=== PATIENT | female | born 1935 | race Caucasian/White ===

== ENCOUNTER 2017-01-18 12:49 | Inpatient (IN) ==
[2017-01-19] MEDS ORDERED: *HR* Acetaminophen w/Cod 300-30 mg 1 TAB TABLET PO PRN (20:25)
[2017-01-19] MEDS: hydrALAZINE 25 MG TABLET PO SCH (23:01)
[2017-01-20 05:36] LABS: INR 1.3; Prothrombin Time 14.2 Seconds (9.4-12.1)
[2017-01-20 05:37] LABS: Basophils % 0.2 %; Eosinophils # 0.1 K/mcL (0.0-0.6); Eosinophils % 1.4 %; Hematocrit 33.2 % (35.3-44.9); Hemoglobin 11.7 g/dL (11.5-15.4); Immature Granulocytes % 0.4 % (0-4); Lymphocytes # 0.4 K/mcL (0.6-4.6); Lymphocytes % 3.9 %; Mean Corpuscular HGB Conc 35.2 g/dL (31.6-35.5); Mean Corpuscular Hemoglobin 31.4 pg (28.0-33.3); Mean Platelet Volume 10.4 fL (9.4-12.4); Monocytes # 0.4 K/mcL (0.0-1.3); Monocytes % 3.9 %; Neutrophils # 8.2 K/mcL (1.6-8.9); Platelet Count 247 K/mcL (140-400); Red Blood Count 3.73 M/mcL (3.82-4.97); Red Cell Distribution Width 12.9 % (11.5-14.5); Segmented Neutrophils % 90.2 %
[2017-01-20 05:39] LABS: Activated Partial Thrombo Time 29.7 Seconds (26.0-36.0)
[2017-01-20 05:49] LABS: BUN/Creatinine Ratio 18 (6-26); Blood Urea Nitrogen 12 mg/dL (7-20); Calcium 8.5 mg/dL (8.6-10.8); Carbon Dioxide 19 mEq/L (19-29); Chloride 109 mEq/L (98-109); Glucose 116 mg/dL (70-99); Osmolality,Calculated 291 (280-300); Potassium 3.6 mEq/L (3.5-4.5); Sodium 140 mEq/L (136-145); eGFR For African Americans > 60 (> 60); eGFR For Non-African Americans > 60 (> 60)
[2017-01-20] MEDS: hydrALAZINE 25 MG TABLET PO SCH ×3 (08:43→23:00)
[2017-01-20] MEDS: Cholecalciferol (D-3) 1,000 UNIT TABLET PO SCH (08:43)
[2017-01-20] MEDS ORDERED: Lidocaine/EPI 1:100k 2% 20 ML VIAL INFILT ONE (10:37)
[2017-01-20] MEDS ORDERED: Lidocaine/EPI 1:100k 1% 30 ML VIAL ONE (10:53)
[2017-01-20] MEDS ORDERED: Lidocaine/EPI 1:100k 1% 30 ML VIAL INFILT ONE (11:00)
[2017-01-20] MEDS: *HR* Acetaminophen w/Cod 300-30 mg 1 TAB TABLET PO PRN ×2 (11:42→18:04)
--- NOTE | 2017-01-20 11:47 | Internal Med History&Physical ---
Date of Encounter: 01/20/17 Time of Encounter: 11:47 Internal Medicine - H&P: HPI Admitted From: Hospital to Hospital Transfer Plans for Post Hospital Care: Home History of present illness: Ms. Kebede is a 81 year old female Past Med Surg Social Fam HX - Past Medical History Medical history: atrial fibrillation, cancer, CVA, hyperlipidemia, hypertension , other Psychiatric history: no psych history - Past Surgical History Surgical History: breast surgery, knee replacement - Social History Smoking Status: Never smoker Alcohol use: none Drug use: none Internal Medicine - H&P: Meds Acetaminophen w/Cod 300-30 mg [Tylenol w/Codeine #3] 1 each PO Q6HR PRN [History] Acetaminophen w/Cod 300-30 mg [Tylenol w/Codeine #3] 2 each PO Q6HR PRN [History] Aspirin 81 mg PO DAILY 01/19/17 [History] Atorvastatin [Lipitor] 10 mg PO HS 01/19/17 [History] Cholecalciferol (D-3) [Vitamin D] 1,000 unit PO DAILY 01/19/17 [History] hydrALAZINE [HydrALAZINE] 25 mg PO Q8HR 01/19/17 [History] Allergies Penicillins Allergy (Verified 01/19/17 20:25) Swelling of Lip/Tongue/Throat All Systems PM: A 10-system review of systems was performed and is negative for pertinent findings except as documented above in the HPI. - Constitutional Vitals: Temp Pulse Resp BP Pulse Ox 99.3 F 90 18 148/89 93 01/20/17 07:44 01/20/17 07:44 01/20/17 07:44 01/20/17 07:44 01/20/17 07:44 - Head Head exam: Present: atraumatic, normal inspection, normocephalic - Neck Neck exam general surgery: Present: supple, trachea midline. Absent: lymphadenopathy - Respiratory Respiratory exam: Present: CTAB. Absent: accessory muscle use, rales, rhonchi, wheezes - Cardiovascular Cardiovascular exam: Present: RRR, +S1, +S2. Absent: diastolic murmur, gallop, rubs, systolic murmur - Skin Skin exam: Present: dry, intact Additional comments: Patient apparently had a monitor placed in the upper left sternal. There is a small opening that has been bleeding through at least 8 dressing changes. My partner colleague spoke with the surgeon involved in this recommend that a stitch. So suture was placed across the opening of this 1 cm incision and we will follow after the dressings a bit on there for a while. Internal Med - H&P Results - Labs CBC & Chem 7: 01/20/17 05:25 01/20/17 05:25 Labs: Short CBC 01/20/17 Range/Units 05:25 WBC 9.1 (4.3-11.1) K/mcL Hgb 11.7 (11.5-15.4) g/dL Hct 33.2 L (35.3-44.9) % Plt Count 247 (140-400) K/mcL Neutrophils # 8.2 (1.6-8.9) K/mcL BMP 01/20/17 05:25 Sodium 140 Potassium 3.6 Chloride 109 Carbon Dioxide 19 BUN 12 Creatinine 0.66 Glucose 116 H Calcium 8.5 L - VTE Documentation of Mechanical Device: Graduated compression elastic hosiery
[2017-01-21] MEDS: Cholecalciferol (D-3) 1,000 UNIT TABLET PO SCH (08:08)
[2017-01-21] MEDS: hydrALAZINE 25 MG TABLET PO SCH ×3 (08:08→23:31)
--- NOTE | 2017-01-21 09:11 | Internal Med Progress Note ---
Date of Encounter: 01/21/17 Time of Encounter: 09:09 - Assessment and plan (1) CVA (cerebral vascular accident) Current Visit: Yes Status: Acute Assessment and plan: PT and OT working on improving ADL. Still has some residual difficulty in mobility, transfers, balance, gait, and activity tolerance. Patient often fatigue. 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 - Time Spent With Patient less than 15 minutes - Subjective Interval history: Patient feels better today. Happy that her wound has stopped bleeding. No shortness of breath. No chest pain. Still has some mild fatigue. No chest pain. Strong odor of urine. We will check urinalysis today - Constitutional Vitals: Temp Pulse Resp BP Pulse Ox 100.2 F H 91 16 125/75 93 01/21/17 07:00 01/21/17 07:00 01/21/17 07:00 01/21/17 07:00 01/21/17 07:00 General appearance: Present: A&O X 3, pleasant, no acute distress - Respiratory Respiratory exam: Present: CTAB. Absent: accessory muscle use, rales, rhonchi, wheezes - Cardiovascular Cardiovascular exam: Present: RRR, +S1, +S2. Absent: diastolic murmur, gallop, rubs, systolic murmur - GI/Abdominal GI/Abdominal exam: Present: normal bowel sounds, soft, no peritoneal signs. Absent: distended, tenderness - Incison Incision: Present: clean and dry Internal Medicine: Result - Labs CBC & Chem 7: 01/20/17 05:25 01/20/17 05:25 - ABG Interpretation ABG results: PT/INR, D-dimer PT 14.2 Seconds (9.4-12.1) H 01/20/17 05:25 - VTE Documentation of Mechanical Device: Graduated compression elastic hosiery Consult Discharge Plan - Plan Referrals: Karel Membreno, RELAY SHOP TESTER [Primary Care Provider] -
[2017-01-21 18:31] LABS: Bilirubin,Urine Small (Negative); Blood,Urine Negative (Negative); Clarity,Urine Clear (Clear); Color,Urine Yellow (Yellow); Glucose,Urine (UA) Normal (Normal); Ketones,Urine Negative (Negative); Leukocyte Esterase,Urine Large (Negative); Nitrite,Urine Positive (Negative); PH,Urine 5.5 pH Units (5.0-8.0); Protein,Urine 100 mg/dL (Neg-Trace); Specific Gravity,Urine 1.015 (1.010-1.025); Urobilinogen,Urine Normal (Normal)
[2017-01-21 19:30] LABS: Bacteria,Urine Many per hpf (None-Few); Squamous Epithelial Cell,Urine Few per lpf (None-Few); WBC,Urine TNTC per hpf (0-3)
[2017-01-21] MEDS: *HR* Acetaminophen w/Cod 300-30 mg 1 TAB TABLET PO PRN (20:46)
[2017-01-22] MEDS: Cholecalciferol (D-3) 1,000 UNIT TABLET PO SCH (08:55)
[2017-01-22] MEDS: hydrALAZINE 25 MG TABLET PO SCH ×3 (08:55→23:59)
[2017-01-22] MEDS: *HR* Acetaminophen w/Cod 300-30 mg 1 TAB TABLET PO PRN (21:02)
[2017-01-23] MEDS: Cholecalciferol (D-3) 1,000 UNIT TABLET PO SCH (09:12)
[2017-01-23] MEDS: hydrALAZINE 25 MG TABLET PO SCH ×3 (09:12→23:25)
--- NOTE | 2017-01-23 14:03 | Internal Med Progress Note ---
Date of Encounter: 01/23/17 Time of Encounter: 14:02 - Assessment and plan (1) CVA (cerebral vascular accident) Current Visit: Yes Status: Acute Assessment and plan: PT and OT working on improving ADL. Still has some residual difficulty in mobility, transfers, balance, gait, and activity tolerance. Patient often fatigue. 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 (2) UTI (urinary tract infection) Current Visit: Yes Status: Acute Assessment and plan: Started on Cipro Qualifiers: Urinary tract infection type: site unspecified Hematuria presence: without hematuria Qualified Code(s): N39.0 - Urinary tract infection, site not specified - Time Spent With Patient less than 15 minutes - Subjective Interval history: Patient feels better today. . No shortness of breath. No chest pain. Still has some mild fatigue. No chest pain. - Constitutional Vitals: Temp Pulse Resp BP Pulse Ox 98 F 88 16 124/66 96 01/23/17 08:48 01/23/17 08:48 01/23/17 08:48 01/23/17 08:48 01/23/17 08:48 General appearance: Present: A&O X 3, pleasant, no acute distress - Respiratory Respiratory exam: Present: CTAB. Absent: accessory muscle use, rales, rhonchi, wheezes - Cardiovascular Cardiovascular exam: Present: RRR, +S1, +S2. Absent: diastolic murmur, gallop, rubs, systolic murmur - GI/Abdominal GI/Abdominal exam: Present: normal bowel sounds, soft, no peritoneal signs. Absent: distended, tenderness Internal Medicine: Result - Labs CBC & Chem 7: 01/20/17 05:25 01/20/17 05:25 - ABG Interpretation ABG results: PT/INR, D-dimer PT 14.2 Seconds (9.4-12.1) H 01/20/17 05:25 - VTE Documentation of Mechanical Device: Graduated compression elastic hosiery Consult Discharge Plan - Plan Referrals: Haseeb,Karel Cruz, EGG GRADER [Primary Care Provider] -
[2017-01-24] MEDS: *HR* Acetaminophen w/Cod 300-30 mg 1 TAB TABLET PO PRN (01:52)
[2017-01-24 05:28] LABS: Basophils % 0.8 %; Eosinophils # 0.6 K/mcL (0.0-0.6); Eosinophils % 12.4 %; Hematocrit 28.3 % (35.3-44.9); Immature Granulocytes % 0.6 % (0-4); Lymphocytes # 0.7 K/mcL (0.6-4.6); Lymphocytes % 13.4 %; Mean Corpuscular HGB Conc 35.3 g/dL (31.6-35.5); Mean Corpuscular Hemoglobin 31.5 pg (28.0-33.3); Mean Corpuscular Volume 89.3 fL (83.0-100.0); Mean Platelet Volume 10.4 fL (9.4-12.4); Monocytes # 0.4 K/mcL (0.0-1.3); Monocytes % 7.4 %; Neutrophils # 3.2 K/mcL (1.6-8.9); Platelet Count 262 K/mcL (140-400); Red Blood Count 3.17 M/mcL (3.82-4.97); Red Cell Distribution Width 12.9 % (11.5-14.5); Segmented Neutrophils % 65.4 %
[2017-01-24 05:39] LABS: BUN/Creatinine Ratio 19 (6-26); Blood Urea Nitrogen 13 mg/dL (7-20); Calcium 8.1 mg/dL (8.6-10.8); Carbon Dioxide 20 mEq/L (19-29); Chloride 107 mEq/L (98-109); Glucose 110 mg/dL (70-99); Osmolality,Calculated 283 (280-300); Potassium 3.6 mEq/L (3.5-4.5); Sodium 136 mEq/L (136-145); eGFR For African Americans > 60 (> 60); eGFR For Non-African Americans > 60 (> 60)
[2017-01-24] MEDS: hydrALAZINE 25 MG TABLET PO SCH ×2 (07:55→16:53)
[2017-01-24] MEDS: Cholecalciferol (D-3) 1,000 UNIT TABLET PO SCH (07:55)
--- NOTE | 2017-01-24 09:56 | Internal Med Progress Note ---
Date of Encounter: 01/24/17 Time of Encounter: 09:55 - Assessment and plan (1) CVA (cerebral vascular accident) Current Visit: Yes Status: Acute Assessment and plan: PT and OT working on improving ADL. Still has some residual difficulty in mobility, transfers, balance, gait, and activity tolerance. Patient often fatigue. 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 (2) UTI (urinary tract infection) Current Visit: Yes Status: Acute Assessment and plan: Started on Cipro Qualifiers: Urinary tract infection type: site unspecified Hematuria presence: without hematuria Qualified Code(s): N39.0 - Urinary tract infection, site not specified - Time Spent With Patient less than 15 minutes - Subjective Interval history: Patient feels better today. . No shortness of breath. No chest pain. There is satisfied with improvement of her upper extremity strength. Still has the same foot drop. No chest pain. - Constitutional Vitals: Temp Pulse Resp BP Pulse Ox 97.9 F 80 18 120/71 93 01/24/17 07:37 01/24/17 07:37 01/24/17 07:37 01/24/17 07:37 01/24/17 07:37 General appearance: Present: A&O X 3, pleasant, no acute distress - Respiratory Respiratory exam: Present: CTAB. Absent: accessory muscle use, rales, rhonchi, wheezes - Cardiovascular Cardiovascular exam: Present: RRR, +S1, +S2. Absent: diastolic murmur, gallop, rubs, systolic murmur - GI/Abdominal GI/Abdominal exam: Present: normal bowel sounds, soft, no peritoneal signs. Absent: distended, tenderness Internal Medicine: Result - Labs CBC & Chem 7: 01/24/17 05:10 01/24/17 05:10 Labs: Short CBC 01/24/17 Range/Units 05:10 WBC 4.8 (4.3-11.1) K/mcL Hgb 10.0 L D (11.5-15.4) g/dL Hct 28.3 L (35.3-44.9) % Plt Count 262 (140-400) K/mcL Neutrophils # 3.2 (1.6-8.9) K/mcL BMP 01/24/17 05:10 Sodium 136 Potassium 3.6 Chloride 107 Carbon Dioxide 20 BUN 13 Creatinine 0.67 Glucose 110 H Calcium 8.1 L - ABG Interpretation ABG results: PT/INR, D-dimer PT 14.2 Seconds (9.4-12.1) H 01/20/17 05:25 - VTE Documentation of Mechanical Device: Graduated compression elastic hosiery Consult Discharge Plan - Plan Referrals: Karel Membreno, CT TECH [Primary Care Provider] -
[2017-01-25] MEDS: hydrALAZINE 25 MG TABLET PO SCH ×4 (00:05→23:48)
[2017-01-25] MEDS: *HR* Acetaminophen w/Cod 300-30 mg 1 TAB TABLET PO PRN ×2 (00:05→21:31)
[2017-01-25] MEDS: Cholecalciferol (D-3) 1,000 UNIT TABLET PO SCH (08:07)
--- NOTE | 2017-01-25 13:11 | Internal Med Progress Note ---
Date of Encounter: 01/25/17 Time of Encounter: 13:10 - Assessment and plan (1) CVA (cerebral vascular accident) Current Visit: Yes Status: Acute Assessment and plan: There working with the patient and all modalities. 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 - Time Spent With Patient less than 15 minutes - Subjective Interval history: Issues work with therapists has no complaints. - Constitutional Vitals: Temp Pulse Resp BP Pulse Ox 98.2 F 80 16 129/68 95 01/25/17 07:25 01/25/17 07:25 01/25/17 07:25 01/25/17 07:25 01/25/17 07:25 General appearance: Present: A&O X 3, pleasant, no acute distress - Head Head exam: Present: atraumatic, normocephalic - Neck Neck exam general surgery: Present: supple, trachea midline. Absent: lymphadenopathy - Respiratory Respiratory exam: Present: CTAB. Absent: accessory muscle use, rales, rhonchi, wheezes - Cardiovascular Cardiovascular exam: Present: RRR, +S1, +S2. Absent: diastolic murmur, gallop, rubs, systolic murmur Internal Medicine: Result - Labs CBC & Chem 7: 01/24/17 05:10 01/24/17 05:10 Labs: Labs stable - ABG Interpretation ABG results: PT/INR, D-dimer PT 14.2 Seconds (9.4-12.1) H 01/20/17 05:25 - VTE Documentation of Mechanical Device: Graduated compression elastic hosiery Consult Discharge Plan - Plan Referrals: Karel Membreno, CONSUMER EDUCATION SPECIALIST [Primary Care Provider] -
[2017-01-26] MEDS: hydrALAZINE 25 MG TABLET PO SCH ×2 (08:30→17:25)
[2017-01-26] MEDS: Cholecalciferol (D-3) 1,000 UNIT TABLET PO SCH (08:30)
--- NOTE | 2017-01-26 13:30 | Internal Med Progress Note ---
Date of Encounter: 01/26/17 Time of Encounter: 13:28 - Assessment and plan (1) CVA (cerebral vascular accident) Current Visit: Yes Status: Acute Assessment and plan: Pain treated from CVA. Making progress in PT OT TR. 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 - Time Spent With Patient less than 15 minutes - Subjective Interval history: Patient's only complaint is not sleeping. She worked nights for many years and states she does normally get up until 11 or 12:00 in the daytime. She therefore stays up late watching TV Servin try some Ambien. - Constitutional Vitals: Temp Pulse Resp BP Pulse Ox 98.2 F 85 18 111/71 97 01/26/17 07:11 01/26/17 07:11 01/26/17 07:11 01/26/17 07:11 01/26/17 07:11 General appearance: Present: A&O X 3, pleasant, no acute distress - Head Head exam: Present: atraumatic, normal inspection, normocephalic - Respiratory Respiratory exam: Present: CTAB. Absent: accessory muscle use, rales, rhonchi, wheezes - Cardiovascular Cardiovascular exam: Present: RRR, +S1, +S2. Absent: diastolic murmur, gallop, rubs, systolic murmur Internal Medicine: Result - Labs CBC & Chem 7: 01/24/17 05:10 01/24/17 05:10 - ABG Interpretation ABG results: PT/INR, D-dimer PT 14.2 Seconds (9.4-12.1) H 01/20/17 05:25 - VTE Documentation of Mechanical Device: Graduated compression elastic hosiery Consult Discharge Plan - Plan Referrals: Karel Membreno, RAILWAY EQUIPMENT OPERATOR [Primary Care Provider] -
--- NOTE | 2017-01-26 14:01 | Psychological Evaluation ---
Date of Encounter: 01/26/17 Time of Encounter: 11:00 History of Present Illness History of present illness: Ms. Kebede is a 81 year old female admitted to [facility] for inpatient rehabilitation following a stroke. She was seen on this date to assess her current cognitive and emotional status. Past Medical History Medical history: Significant for atrial fibrillation, cancer, hyperlipidemia, HTN and previous CVA. - Psychiatric History Additional Psychiatric History: There is no history of psychiatric hospitalization or mental health counseling. There is no history of treatment for depression or anxiety. There is no family history of psychiatric or mental health issues. Home Medications and Allergies Acetaminophen w/Cod 300-30 mg [Tylenol w/Codeine #3] 1 each PO Q6HR PRN [History] Acetaminophen w/Cod 300-30 mg [Tylenol w/Codeine #3] 2 each PO Q6HR PRN [History] Aspirin 81 mg PO DAILY 01/19/17 [History] Atorvastatin [Lipitor] 10 mg PO HS 01/19/17 [History] Cholecalciferol (D-3) [Vitamin D] 1,000 unit PO DAILY 01/19/17 [History] hydrALAZINE [HydrALAZINE] 25 mg PO Q8HR 01/19/17 [History] Allergies Penicillins Allergy (Verified 01/19/17 20:25) Swelling of Lip/Tongue/Throat Social History - Social History Social History: Ms. Kebede has been for 20 + years. They were for over 20 years and had 3 children (two sons and one daughter). Ms. Kebede lives alone in an apartment in [place]. Her daughter lives in the area and she considers her daughter her main social support along with one of her granddaughters. Ms. Kebede's has a son in [place] and one in [place], [place]. Her family includes 4 grandsons, 2 granddaughters, 1 great granddaughter and 3 great grandsons. Prior to this hospitalization, Ms. 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 - Tobacco Use Smoking Status: Never smoker - Alcohol Use Alcohol Use: rarely (a glass of wine once a month) Cognitive/Emotional Assessment - Cognitive Ability Additional Findings: Ms. Kebede was alert, attentive and fully oriented. Speech was clear, effective and fluent. Thought processes were logical, goal-directed and coherent. There were no signs of delusional ideation or perceptual disturbances. She performed within the average range on measures of attention, sentence repetition, confrontation naming, verbal comprehension, social judgment and abstract reasoning. She scored within the mildly impaired range on a measure of delayed verbal recall. She exhibited problems with storage and retrieval of new information. She also scored within the mildly impaired range on a measure of mental arithmetic. Ms. Kebede appeared aware of her cognitive strengths and deficits. - Emotional Status Additional Findings: Ms. Kebede was pleasant, friendly and cooperative. She denied symptoms of depression or anxiety. Mood appeared somber. Affect was appropriate in range and intensity but Ms. Kebede appeared tired/worn down. Ms. Kebede reported that she has a longstanding problem with sleep. She typically averages around 4 hours of sleep a day. She takes a small nap during the day (1.5hours) and acknowledged feeling very fatigued. Her primary care physician has suggested in the past that she start on a sleep aid, but Ms. Kebede has been reluctant to take anything. We spent some time during this evaluation reviewing importance of good sleep hygiene following a stroke. Ms. Kebede reported that she is trying to "accept" that she has had a stroke and to "do what they say". Assessment & Plan - Diagnosis (1) Other specified mental disorders due to known physiological condition - Treatment Plan Treatment Plan/Recommendations: Ms. Kebede appears to be coping fairly well, from an emotional perspective, following a recent stroke. There are no signs of major depression or anxiety. Cognitively, there are signs of deficits with delayed verbal recall and mental arithmetic. She will benefit from use of reminders, notetaking and repetition to retain new information. With regard to her insomnia, she was given information/education on the importance of good sleep hygiene and will be started on a medication to assist with sleep. There are no recommendations for additional psychological interventions at this time. Procedures - Session Time Session Start Time: 11:00 Session Stop Time: 11:30
--- NOTE | 2017-01-26 15:35 | Physcial Medicine-Consult Note ---
Date of Encounter: 01/26/17 Time of Encounter: 15:31 Physical Medicine - AP (1) CVA (cerebral vascular accident) Status: Acute Assessment and plan: 1. Ms. Kebede will continue with intensive PT/OT/ST/TR. She is currently SBA for shower, she requires cues for proper sequencing to perform shower hygiene. She is having difficulty with multi-step tasks, issues with short term recall and focus. She is currently ambulating 150 feet with SBA. We will continue with therapy to address her cognitive issues and focus on improving independence with ADLs and safety. She is suffering from insomnia, so she would benefit from the addition of a sleep aid in the evening. Code(s): I63.9 - Cerebral infarction, unspecified SNOMED Code(s): 724568281 Physical Medicine - HPI - Data of Consult Consult date: 01/26/17 Requesting Physician: Cooper Toro DO Primary Care Provider: Karel Membreno CNP - Consult Narrative Reason for consult: CVA History of present illness: Ms. Kebede is a 81 year old female who presented to [facility] ED after being found in her apartment with altered mental status and a history of frequent falls. MRI of her brain revealed chronic ischemic changes, no evidence of an acute infarct. CC: Cooper Toro DO Past Med Surg Social Fam HX - Past Medical History Medical history: atrial fibrillation, cancer, CVA, hyperlipidemia, hypertension , other Psychiatric history: no psych history - Past Surgical History Surgical History: breast surgery, knee replacement - Social History Smoking Status: Never smoker Alcohol use: rarely (a glass of wine once a month) Drug use: none Medications and Allergies Acetaminophen w/Cod 300-30 mg [Tylenol w/Codeine #3] 1 each PO Q6HR PRN [History] Acetaminophen w/Cod 300-30 mg [Tylenol w/Codeine #3] 2 each PO Q6HR PRN [History] Aspirin 81 mg PO DAILY 01/19/17 [History] Atorvastatin [Lipitor] 10 mg PO HS 01/19/17 [History] Cholecalciferol (D-3) [Vitamin D] 1,000 unit PO DAILY 01/19/17 [History] hydrALAZINE [HydrALAZINE] 25 mg PO Q8HR 01/19/17 [History] Allergies Penicillins Allergy (Verified 01/19/17 20:25) Swelling of Lip/Tongue/Throat - Constitutional Constitutional: Present: chills - Cardiovascular Cardiovascular: Absent: chest pain, diaphoresis, dyspnea - Respiratory Respiratory: Absent: cough, dyspnea, dyspnea on exertion - Gastrointestinal Gastrointestinal: Absent: abdominal pain, constipation, nausea - Genitourinary Genitourinary: Absent: change in urinary stream, difficulty urinating, urinary incontinence - Musculoskeletal Musculoskeletal: Absent: arthralgias - Neurological Neurological: Absent: focal weakness, frequent falls, loss of vision - Psychiatric Psychiatric: Present: abnormal sleep pattern Physical Medicine - Exam - Constitutional Vitals: Temp Pulse Resp BP Pulse Ox 98.2 F 85 18 111/71 97 01/26/17 07:11 01/26/17 07:11 01/26/17 07:11 01/26/17 07:11 01/26/17 07:11 General appearance: cooperative, no acute distress - Head Head exam: Present: atraumatic, normal inspection - Respiratory Respiratory exam: Present: CTAB - Cardiovascular Cardiovascular exam: Present: RRR - GI/Abdominal GI/Abdominal exam: Present: normal bowel sounds, soft. Absent: tenderness - Extremities Exam Extremities exam: Present: full ROM, normal inspection. Absent: calf tenderness Additional comments: Motor strength is 5/5 in the bilateral upper and lower limbs. - Neurological Exam Neurological exam: Present: alert, altered, CN II-XII intact, oriented X3, no focal deficits. Absent: facial droop Physical Medicine - Results - Labs CBC & Chem 7: 01/24/17 05:10 01/24/17 05:10 Consult Discharge Plan - Plan Referrals: Karel Membreno DIRECTOR OF PHILANTHROPY [Primary Care Provider] -
[2017-01-27] MEDS: hydrALAZINE 25 MG TABLET PO SCH ×3 (01:53→17:11)
[2017-01-27] MEDS: Cholecalciferol (D-3) 1,000 UNIT TABLET PO SCH (08:49)
--- NOTE | 2017-01-27 13:34 | Internal Med Progress Note ---
Date of Encounter: 01/27/17 Time of Encounter: 13:33 - Assessment and plan (1) CVA (cerebral vascular accident) Current Visit: Yes Status: Acute Assessment and plan: Patient appeared to had multiple microvascular changes and cerebral hemispheres. She is here now for therapy. 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 - Time Spent With Patient less than 15 minutes - Subjective Interval history: Rations participating PTOT and TR. She is much improved. Her chest wound is healed and there was no more bleeding after the procedure. - Constitutional Vitals: Temp Pulse Resp BP Pulse Ox 98.1 F 98 18 128/83 92 01/27/17 07:21 01/27/17 07:21 01/27/17 07:21 01/27/17 07:21 01/27/17 07:21 General appearance: Present: A&O X 3, pleasant, no acute distress - Head Head exam: Present: atraumatic, normal inspection, normocephalic - Neck Neck exam general surgery: Present: supple, trachea midline. Absent: lymphadenopathy - Respiratory Respiratory exam: Present: CTAB. Absent: accessory muscle use, rales, rhonchi, wheezes - Cardiovascular Cardiovascular exam: Present: RRR, +S1, +S2. Absent: diastolic murmur, gallop, rubs, systolic murmur Internal Medicine: Result - Labs CBC & Chem 7: 01/24/17 05:10 01/24/17 05:10 Labs: Lab is stable - ABG Interpretation ABG results: PT/INR, D-dimer PT 14.2 Seconds (9.4-12.1) H 01/20/17 05:25 - VTE Documentation of Mechanical Device: Graduated compression elastic hosiery Consult Discharge Plan - Plan Referrals: Karel Membreno, SOFTWARE QUALITY TEST ENGINEER [Primary Care Provider] -
[2017-01-28] MEDS: *HR* Acetaminophen w/Cod 300-30 mg 1 TAB TABLET PO PRN ×3 (00:05→20:58)
[2017-01-28] MEDS: hydrALAZINE 25 MG TABLET PO SCH ×3 (00:05→17:27)
[2017-01-28] MEDS: Cholecalciferol (D-3) 1,000 UNIT TABLET PO SCH (09:42)
--- NOTE | 2017-01-28 13:29 | Internal Med Progress Note ---
Date of Encounter: 01/28/17 Time of Encounter: 13:27 - Assessment and plan (1) CVA (cerebral vascular accident) Current Visit: Yes Status: Acute Assessment and plan: Outpatient CVA she is here for rehabilitation. 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 - Time Spent With Patient less than 15 minutes - Subjective Interval history: Patient has family visiting is doing well cooperating and I think is resting better. - Constitutional Vitals: Temp Pulse Resp BP Pulse Ox 97.6 F 85 16 121/74 95 01/28/17 07:41 01/28/17 07:41 01/28/17 07:41 01/28/17 07:41 01/28/17 07:41 General appearance: Present: A&O X 3, pleasant, no acute distress - Head Head exam: Present: atraumatic, normal inspection, normocephalic - Neck Neck exam general surgery: Present: supple, trachea midline. Absent: lymphadenopathy - Respiratory Respiratory exam: Present: CTAB. Absent: accessory muscle use, rales, rhonchi, wheezes - Cardiovascular Cardiovascular exam: Present: RRR, +S1, +S2. Absent: diastolic murmur, gallop, rubs, systolic murmur Internal Medicine: Result - Labs CBC & Chem 7: 01/24/17 05:10 01/24/17 05:10 Labs: Labs looking good - ABG Interpretation ABG results: PT/INR, D-dimer PT 14.2 Seconds (9.4-12.1) H 01/20/17 05:25 - VTE Documentation of Mechanical Device: Graduated compression elastic hosiery Consult Discharge Plan - Plan Referrals: Karel Membreno, PARTNERSHIP MARKETING MANAGER [Primary Care Provider] -
[2017-01-29] MEDS: hydrALAZINE 25 MG TABLET PO SCH ×4 (00:04→23:05)
[2017-01-29] MEDS: Cholecalciferol (D-3) 1,000 UNIT TABLET PO SCH (07:48)
[2017-01-29] MEDS: *HR* Acetaminophen w/Cod 300-30 mg 1 TAB TABLET PO PRN (23:05)
[2017-01-30] MEDS: Cholecalciferol (D-3) 1,000 UNIT TABLET PO SCH (09:13)
[2017-01-30] MEDS: hydrALAZINE 25 MG TABLET PO SCH ×3 (09:13→22:59)
[2017-01-30] MEDS: *HR* Acetaminophen w/Cod 300-30 mg 1 TAB TABLET PO PRN (23:00)
[2017-01-31 05:45] LABS: Basophils % 1.1 %; Eosinophils # 0.6 K/mcL (0.0-0.6); Eosinophils % 14.8 %; Hematocrit 30.1 % (35.3-44.9); Hemoglobin 10.5 g/dL (11.5-15.4); Immature Granulocytes % 0.5 % (0-4); Lymphocytes % 24.9 %; Mean Corpuscular HGB Conc 34.9 g/dL (31.6-35.5); Mean Corpuscular Hemoglobin 31.5 pg (28.0-33.3); Mean Corpuscular Volume 90.4 fL (83.0-100.0); Mean Platelet Volume 9.4 fL (9.4-12.4); Monocytes # 0.6 K/mcL (0.0-1.3); Monocytes % 15.3 %; Platelet Count 334 K/mcL (140-400); Red Blood Count 3.33 M/mcL (3.82-4.97); Red Cell Distribution Width 13.1 % (11.5-14.5); Segmented Neutrophils % 43.4 %
[2017-01-31 05:46] LABS: Neutrophils # 1.7 K/mcL (1.6-8.9)
[2017-01-31 05:53] LABS: BUN/Creatinine Ratio 13 (6-26); Blood Urea Nitrogen 9 mg/dL (7-20); Calcium 8.9 mg/dL (8.6-10.8); Carbon Dioxide 19 mEq/L (19-29); Chloride 108 mEq/L (98-109); Glucose 113 mg/dL (70-99); Osmolality,Calculated 279 (280-300); Potassium 3.8 mEq/L (3.5-4.5); Sodium 135 mEq/L (136-145); eGFR For African Americans > 60 (> 60); eGFR For Non-African Americans > 60 (> 60)
[2017-01-31] MEDS: Cholecalciferol (D-3) 1,000 UNIT TABLET PO SCH (08:29)
[2017-01-31] MEDS: hydrALAZINE 25 MG TABLET PO SCH ×2 (08:29→15:41)
--- NOTE | 2017-01-31 13:24 | Internal Med Progress Note ---
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 PT feels that she would lose her balance and fall if no one was there. She does live alone.'s therapy staffs go to schedule family meeting. - Constitutional Vitals: Temp Pulse Resp BP Pulse Ox 97.5 F L 96 15 102/64 94 01/31/17 08:00 01/31/17 08:00 01/31/17 08:00 01/31/17 12:07 01/31/17 08:00 General appearance: Present: A&O X 3, pleasant, no acute distress - Head Head exam: Present: atraumatic, normal inspection, normocephalic - Neck Neck exam general surgery: Present: supple, trachea midline. Absent: lymphadenopathy - Respiratory Respiratory exam: Present: CTAB. Absent: accessory muscle use, rales, rhonchi, wheezes - Cardiovascular Cardiovascular exam: Present: RRR, +S1, +S2. Absent: diastolic murmur, gallop, rubs, systolic murmur Internal Medicine: Result - Labs CBC & Chem 7: 01/31/17 05:30 01/31/17 05:30 Labs: Short CBC 01/31/17 Range/Units 05:30 WBC 3.8 L (4.3-11.1) K/mcL Hgb 10.5 L (11.5-15.4) g/dL Hct 30.1 L (35.3-44.9) % Plt Count 334 (140-400) K/mcL Neutrophils # 1.7 (1.6-8.9) K/mcL BMP 01/31/17 05:30 Sodium 135 L Potassium 3.8 Chloride 108 Carbon Dioxide 19 BUN 9 Creatinine 0.72 Glucose 113 H Calcium 8.9 Labs look stable - ABG Interpretation ABG results: PT/INR, D-dimer PT 14.2 Seconds (9.4-12.1) H 01/20/17 05:25 - VTE Documentation of Mechanical Device: Graduated compression elastic hosiery Consult Discharge Plan - Plan Referrals: Karel Membreno, PRICER [Primary Care Provider] -
[2017-01-31] MEDS: *HR* Acetaminophen w/Cod 300-30 mg 1 TAB TABLET PO PRN (21:07)
[2017-02-01] MEDS: hydrALAZINE 25 MG TABLET PO SCH ×3 (00:25→16:11)
[2017-02-01] MEDS: Cholecalciferol (D-3) 1,000 UNIT TABLET PO SCH (07:57)
--- NOTE | 2017-02-01 12:06 | Internal Med Progress Note ---
Date of Encounter: 02/01/17 Time of Encounter: 12:04 - Assessment and plan (1) CVA (cerebral vascular accident) Current Visit: Yes Status: Acute Assessment and plan: Patient had a CVA and has balance issues lives alone. Is working with PT OT TR and speech. 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 But looks like her urine does have a UTI. We will start oral antibiotic. - Constitutional Vitals: Temp Pulse Resp BP Pulse Ox 97.9 F 89 18 116/66 92 02/01/17 07:00 02/01/17 07:00 02/01/17 07:00 02/01/17 09:02 02/01/17 07:00 General appearance: Present: A&O X 3, pleasant, no acute distress - Head Head exam: Present: atraumatic, normal inspection, normocephalic - Neck Neck exam general surgery: Present: supple, trachea midline. Absent: lymphadenopathy - Respiratory Respiratory exam: Present: CTAB. Absent: accessory muscle use, rales, rhonchi, wheezes - Cardiovascular Cardiovascular exam: Present: RRR, +S1, +S2. Absent: diastolic murmur, gallop, rubs, systolic murmur Internal Medicine: Result - Labs CBC & Chem 7: 01/31/17 05:30 01/31/17 05:30 Labs: Commented on the UTI. This will be treated - ABG Interpretation ABG results: PT/INR, D-dimer PT 14.2 Seconds (9.4-12.1) H 01/20/17 05:25 - VTE Documentation of Mechanical Device: Graduated compression elastic hosiery Consult Discharge Plan - Plan Referrals: Karel Membreno, SENIOR [employer]ICAL RESEARCH ASSOCIATE [Primary Care Provider] -
[2017-02-01] MEDS: Sulfamethoxazole/Trimeth DS 1 EACH TABLET PO SCH ×2 (12:50→21:08)
[2017-02-01] MEDS: *HR* Acetaminophen w/Cod 300-30 mg 1 TAB TABLET PO PRN (21:08)
[2017-02-02] MEDS: hydrALAZINE 25 MG TABLET PO SCH ×2 (01:26→07:54)
[2017-02-02] MEDS: Sulfamethoxazole/Trimeth DS 1 EACH TABLET PO SCH (07:54)
[2017-02-02] MEDS: Cholecalciferol (D-3) 1,000 UNIT TABLET PO SCH (07:54)
--- NOTE | 2017-02-02 13:46 | Discharge Summary ---
Date of Encounter: 02/02/17 Time of Encounter: 13:44 - Discharge Diagnosis (1) CVA (cerebral vascular accident) Priority: Primary Status: Acute Comments: Patient has responded well to therapy. But were recommended that she not be alone. 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 - Discharge Medications Home Medications: Acetaminophen w/Cod 300-30 mg [Tylenol w/Codeine #3] 1 each PO Q6HR PRN [History] Acetaminophen w/Cod 300-30 mg [Tylenol w/Codeine #3] 2 each PO Q6HR PRN [History] Aspirin 81 mg PO DAILY 01/19/17 [History] Atorvastatin [Lipitor] 10 mg PO HS 01/19/17 [History] Cholecalciferol (D-3) [Vitamin D] 1,000 unit PO DAILY 01/19/17 [History] hydrALAZINE [HydrALAZINE] 25 mg PO Q8HR 01/19/17 [History] Allergies/Adverse Reactions: Allergies Penicillins Allergy (Verified 01/19/17 20:25) Swelling of Lip/Tongue/Throat Date of admission: 01/19/17 20:14 Primary care physician: Karel Membreno CNP Consults: 01/19/17 20:26 Consult to Occupational Therapy [CONS] Routine Comment: Evaluate, develop and implement POC Reason for Consult: weakness Consult to Physical Therapy [CONS] Routine Comment: Evaluate, develop and implement POC Reason for Consult: weakness Consult to Recreational Therapy [CONS] Routine Comment: Evaluate, develop and implement POC 01/25/17 14:34 Consult to Psychology [CONS] Routine Consulting Provider: Laura Antonio Reason for Consult: CVA Time Notified: 15:00 Call Completed: No Discharging clinician: Cooper Toro Anticipated date of discharge: 02/02/17 - Patient Status Disposition: Home Health Service Condition: Good Overall status at discharge: patient is progressing back to baseline - Discharge Instructions Follow Up With: Karel Membreno CNP [Primary Care Provider] - - Diet and Activity Activity: ambulate only with your walker Diet: advance to your usual diet Interval History: She was transferred to [facility] after stroke and has done well. Hospital course: Ms. Kebede is a 81 year old female Patient cooperated with PT OT TR and even speech for cognitive. The patient has been able to do her therapy was standby but we were concerned about her balance in the distinct possibility of falling if someone is not able to at least walk beside her - Time Spent with Patient Total time spent providing and/or coordinating discharge services: Less than 30 minutes - Constitutional Vitals: Temp Pulse Resp BP Pulse Ox 98.1 F 98 16 141/84 92 02/02/17 07:00 02/02/17 07:00 02/02/17 07:00 02/02/17 07:00 02/02/17 07:00 General appearance: Present: A&O X 3, pleasant, no acute distress - Head Head exam: Present: atraumatic, normal inspection, normocephalic - Neck Neck exam general surgery: Present: supple, trachea midline. Absent: lymphadenopathy - Respiratory Respiratory exam: Present: CTAB. Absent: accessory muscle use, rales, rhonchi, wheezes - Cardiovascular Cardiovascular exam: Present: RRR, +S1, +S2. Absent: diastolic murmur, gallop, rubs, systolic murmur - VTE Documentation of Mechanical Device: Graduated compression elastic hosiery
--- NOTE | 2017-02-02 14:10 | Physician Discharge Referral ---
Home Health/Hosp Referral Info Transfer to: Home Health Provider in Charge Post Discharge: PCP - Diagnosis (1) CVA (cerebral vascular accident) Priority: Primary Status: Acute - Respiratory Orders Smoking Cessation: Smoking cessation has been advised. For more information, call the [place] Tobacco Quit Line at 9-599-DCTM-NOW. - Services Needed Following services are medically necessary services: Nursing, Physical Therapy, Speech Therapy - Transfer Medications Home Medications: Acetaminophen w/Cod 300-30 mg [Tylenol w/Codeine #3] 1 each PO Q6HR PRN [History] Acetaminophen w/Cod 300-30 mg [Tylenol w/Codeine #3] 2 each PO Q6HR PRN [History] Aspirin 81 mg PO DAILY 01/19/17 [History] Atorvastatin [Lipitor] 10 mg PO HS 01/19/17 [History] Cholecalciferol (D-3) [Vitamin D] 1,000 unit PO DAILY 01/19/17 [History] hydrALAZINE [HydrALAZINE] 25 mg PO Q8HR 01/19/17 [History] Allergies/Adverse Reactions: Allergies Penicillins Allergy (Verified 01/19/17 20:25) Swelling of Lip/Tongue/Throat Certification: Further, I certify that my clinical findings support that this patient is homebound (i.e. absences from home require considerable and taxing effort and are for medical reasons or gnosticist services or infrequently or short duration when for other reasons) because: Homebound Reason: Patient requires assistance of a person or device to safely leave home Attestation: My signature below is to certify that this patient is under my care and that I, or nurse practitioner, or a physician's dental assistant medical assistant working with me, has a face-to -face encounter with this patient.
[2017-02-02 19:44] VITALS: BP 152/61
== END 2017-02-02 14:35 | disposition home health service (06) | DRG 57 ==
LOC: INPGRE 01-19 20:14
PROVIDERS: ADMIT Internal Medicine; ATTEND Internal Medicine